=== PATIENT | male | born 1975 | race Two or more races ===

== ENCOUNTER 2016-11-03 15:42 | Emergency (ER) | payer SELFPAY ==
[2016-11-03 15:49] VITALS: BMI 24.0
[2016-11-03 15:50] VITALS: RESP 18
--- NOTE | 2016-11-03 18:45 | C.PDOC ---
History Of Present Illness 41 year old male was brought to the emergency department by EMS after being found wandering with EtOH on breath. Patient has a history of alcohol intoxication and denies any physical complaints at this time. Time Seen by Provider: 11/03/16 16:52 Chief Complaint (Nursing): Substance Abuse History Per: Patient History/Exam Limitations: no limitations Onset/Duration Of Symptoms: Hrs Current Symptoms Are (Timing): Still Present Suicide/Self Injury Attempted (Context): None Associated Symptoms: denies: Suicidal Thoughts, Suicidal Plan Involuntary Hold By: None Recent travel outside of the [place]: No Past Medical History Reviewed: Historical Data, Nursing Documentation, Vital Signs Vital Signs: Last Vital Signs Temp 98.7 F 11/03/16 18:00 Pulse 94 H 11/03/16 18:00 Resp 18 11/03/16 18:00 BP 112/70 11/03/16 18:00 Pulse Ox 96 11/03/16 18:51 Family History: States: Unknown Family Hx - Social History Hx Alcohol Use: Yes Hx Substance Use: No - Immunization History Hx Tetanus Toxoid Vaccination: No Review Of Systems Constitutional: Negative for: Fever, Chills Cardiovascular: Negative for: Chest Pain Respiratory: Negative for: Shortness of Breath Gastrointestinal: Negative for: Nausea, Vomiting, Abdominal Pain, Diarrhea Physical Exam - Physical Exam Appears: Non-toxic, No Acute Distress, Other (Patient is intoxicated and uncooperative. Patient failed to be redirected multiple times. Four point restraints at 1700. ) Skin: Warm, Dry Oral Mucosa: Moist Neck: Supple Chest: Symmetrical, No Deformity Cardiovascular: Rhythm Regular Respiratory: Normal Breath Sounds, No Rhonchi, No Wheezing Gastrointestinal/Abdominal: Soft, No Tenderness, No Distention, No Guarding, No Rebound Extremity: Normal ROM, No Tenderness Neurological/Psych: Oriented x3 ED Course And Treatment O2 Sat by Pulse Oximetry: 96 (room air ) Progress Note: multiple re-evals, gradually improving. Reevaluation Time: 20:40 Reassessment Condition: Improved (clinically sober, cooperative, admits to alcohol abuse) ED OBSERVATION Discharge: Yes Date of observation admission: 11/03/16 Time of observation admission: 17:00 - Observation admission statement Patient is being placed in observation because:: patient is intoxicated. - Goals of Observation Goals of observation are:: sobriety. Disposition Doctor Will See Patient In The: Office Counseled Patient/Family Regarding: Studies Performed, Diagnosis - Disposition Disposition: HOME/ ROUTINE Disposition Time: 20:40 Condition: GOOD Forms: [facility] (Yi) - Clinical Impression Clinical Impression: Alcohol intoxication - Scribe Statement The provider has reviewed the documentation as recorded by the Fcoibdarrel Danielle All medical record entries made by the Fcoibdarrel were at my direction and personally dictated by me. I have reviewed the chart and agree that the record accurately reflects my personal performance of the history, physical exam, medical decision making, and the department course for this patient. I have also personally directed, reviewed, and agree with the discharge instructions and disposition.
[2016-11-03 21:24] VITALS: BP 127/79; PULSE 97; TEMP 98.2; O2SAT 97
== END 2016-11-03 21:20 | disposition home or self-care (01) ==
LOC: C.ER 15:42
DX: F10.129 Alcohol abuse with intoxication, unspecified (principal); Y90.9 Presence of alcohol in blood, level not specified

== ENCOUNTER → 2017-06-06 18:36 | Emergency (ER) | payer SELFPAY ==
[2017-06-06 18:36] VITALS: BMI 24.0
== END | disposition left against medical advice (07) ==
LOC: C.ER 18:36
DX: Z02.89 Encounter for other administrative examinations (principal); F19.10 Other psychoactive substance abuse, uncomplicated